=== PATIENT | male | born 1950 | race Caucasian/White ===

== ENCOUNTER 2018-09-16 12:04 | Emergency (ER) | payer OTHER ==
[2018-09-16] MEDS ORDERED: NS 1,000 ML IV ONE (12:27)
--- NOTE | 2018-09-16 12:38 | EDPHY ---
H & P Stated Complaint: RUQ ABD Pain since 929 today, Micha , denies vomiting Time Seen by Provider: 09/16/18 12:24 HPI/ROS: CHIEF COMPLAINT: Right upper quadrant pain HISTORY OF PRESENT ILLNESS: 68-year-old male with hypertension presents with right upper quadrant pain. Onset of mild right upper quadrant pain this morning. Pain has been persistent and gradually increasing since onset, now moderate. Pain increases with deep inspiration and with movement. No associated sx, including no nausea, SOB. Only unusual activity was putting furniture together yesterday, including placing screws, and maneuvering table. No heavy lifting. No known injury and no recent illness. 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 - Physical Exam Exam: General Appearance: Alert, pleasant Eyes: Pupils equal and round, no conjunctival pallor ENT, Mouth: Mucous membranes moist Neck: Normal inspection Respiratory: Tenderness over the lower ribs, Lungs are clear to auscultation Cardiovascular: Regular rate and rhythm Gastrointestinal: Abdomen is soft, right upper quadrant tenderness Neurological: A&O, nonfocal, normal gait Skin: Warm and dry, no rash on torso Extremities: Normal inspection Psychiatric: Mood and affect normal Constitutional: Initial Vital Signs Temperature (C) 36.9 C 09/16/18 12:07 Heart Rate 70 09/16/18 12:07 Respiratory Rate 16 09/16/18 12:07 Blood Pressure 169/103 H 09/16/18 12:07 O2 Sat (%) 95 09/16/18 12:07 O2 Delivery Mode Room Air Allergies/Adverse Reactions: No Known Allergies Allergy (Unverified 09/16/18 12:11) Home Medications: Medication Instructions Recorded Aspirin 81mg (*) 09/16/18 Atenolol-Chlorthalidone 50-25 09/16/18 Crestor 09/16/18 Medical Decision Making - Diagnostics Imaging Results: Abdomen Ultrasound 09/16/18 12:35 Impression: 1. Fatty liver. 2. Borderline dilated common bile duct for age. Recommend correlating with appropriate enzymes and if abnormal, would consider MRCP or ERCP evaluation. Findings and recommendations discussed with NEVA Sarah JOHNSON at 1323 hour, 2018. Chest/Thorax CTA 09/16/18 14:01 Impression: Negative for acute pulmonary embolus. Findings and recommendations discussed with NEVA Smith ELIZABETH at 1429 hour, 2018. Imaging: Discussed imaging studies w/ data communications technician Radiologist, I viewed and interpreted images myself ED Course/Re-evaluation: This patient presents with right upper quadrant pain, exacerbated by movement and deep inspiration. Laboratory tests are also unremarkable, including LFTs ( except minimally elevated ddimer). Right upper quadrant ultrasound reveals a fatty liver, no evidence of gallstones. Results discussed with the patient his , including elevated D-dimer (normal age-adjusted ddimer). Low risk for PE by Well's criteria. Patent feels better after IV Toradol. Exam unchanged. After discussion, pt requests CT pulmonary angiogram for further evaluation. CT pulmonary angiogram is unremarkable, results discussed with the patient and his . Unclear etiology of pain, possibly musculoskeletal. Continues to feel much better after Toradol. I feel that he is safe and stable for discharge home. Warning signs discussed. He will take ibuprofen 3 times daily as needed for pain. Differential Diagnosis: Differential diagnosis includes does not limited to pulmonary embolism, pneumonia, rib fracture, PTX, herpes zoster, renal colic, biliary colic. - Data Points Laboratory Results: Laboratory Results 09/16/18 12:20 09/16/18 12:20 Medications Given: Discontinued Medications Sodium Chloride (Ns) 1,000 mls @ 0 mls/hr IV ONCE ONE PRN Reason: Wide Open Stop: 09/16/18 12:28 Last Admin: 09/16/18 12:28 Dose: 1,000 mls Ketorolac Tromethamine (Toradol) 15 mg IVP EDNOW ONE Stop: 09/16/18 13:10 Last Admin: 09/16/18 13:12 Dose: 15 mg Departure - Departure Disposition: Home, Routine, Self-Care Clinical Impression: Right upper quadrant pain Condition: Good Instructions: Abdominal Pain (ED) Additional Instructions: Ibuprofen 600 mg 3 times daily while the pain persists. Your blood sugar is slightly high today. Follow up with your physician regarding hemoglobin A1C results. Return for worsening symptoms or any concerns. Referrals: Gladis Avendano MD [Medical Doctor] - As per Instructions
[2018-09-16 12:44] LABS: PLATELET COUNT 245 10^3/uL (150-400)
[2018-09-16] MEDS ORDERED: KETOROLAC 15 MG/1 ML SDV IVP ONE (13:09)
[2018-09-16] MEDS ORDERED: IOPAMIDOL (ISOVUE-370) 150 ML BTL IV ONE (14:03)
[2018-09-16 14:58] VITALS: BP 151/94
== END 2018-09-16 14:57 | disposition home or self-care (01) ==
DX: R10.11 Right upper quadrant pain (principal)
CPT/HCPCS: 96374; J1885; Q9967